=== PATIENT | male | born 2005 | race Hispanic/Latino ===

== ENCOUNTER 2025-03-23 14:48 | Emergency (ER) | payer SELFPAY ==
--- OUTSIDE RECORDS SUMMARY | 2025-03-23 14:53 | XMS REPORT | Continuity of Care Document ---
Author Name Unknown Address [address] 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 Name Role Phone Pcp, No Primary Care Physician [phone] KANE JAIN Attending Clinician UnavailKANE Valentin Attending Clinician UnavailARVIN Villanueva Attending Clinician Unavailable ARVIN HERNÁNDEZ Attending Clinician Unavailable VI DAMON Attending Clinician Unavail able VI DAMON Attending Clinician Unavail able MARCIA CUEVAS Attending Clinician Unav ailMARCIA Treviño Attending Clinician UnaMarcia Guzman MD Attending Clinician + MAGO DIANE Attending Clinician UnavailCruz West NP Attending Clinician [phone] [id number] Attending Clinician Unavailable KANE JAIN Admitting Clinician VI Cantor Admitting Clinician Unavail able MARCIA CUEVAS Admitting Clinician MAGO Jarquin Admitting Clinician Albino bermudez Payers Payer Name Policy Type Policy Number Effective Date Expirati on Date Source MEDICAID ALIEN PENDING PENDING 2024 00:00:00 Problems Condition Name Condition Details Condition Category Status Onset Date Resolution Date Last Treatment Date Treating Clinician Comments Source Chest pain, unspecifie d type Chest pain, unspecifie d type Disease Active 01-30 00:00: 00 [facility] Allergies, Adverse Reactions, Alerts Allergy Name Allergy Type Status Severity Reaction(s) Onset Date Inactive Date Treating Clinician Comments Source no allergie s (Not Checked) Propensi ty to adverse reaction to drug Active 03-10 00:00: 00 Tres Degroot NO KNOWN ALLERGIE S Drug Class Active [facility] Social History Social Habit Start Date Stop Date Quantity Comments Source History of tobacco use [facility]igarette [facility] Tobacco use and exposure 2023-11-14 00:00:00 2023-11-14 00:00:00 Smokeless tobacco non-user [facility] Sex assigned at 2005 00:00:00 2005 00:00:00 [facility] Smoking Status Start Date Stop Date Source Tobacco smoking consumption unknown [facility] Smokes tobacco daily 2023-11-14 00:00:00 [facility] Medications Ordered Medication Name Filled Medication Name Start Date Stop Date Current Medication? Ordering Clinician Indication Dosage Frequency Signature (SIG) Comments Components Source naproxen 500 mg tablet 03-10 00:00: 00 Yes 1mg Tres Degroot omeprazole 40 mg capsule,del ayed release 02-04 00:00: 00 Yes 1mg rTes Degroot predniSONE 20 mg tablet 01-30 00:00: 00 02-05 04:59 :00 Yes [id number] 40mg Take 2 tablets by mouth in the morning for 5 days. [facility] ibuprofen 600 mg tablet 01-30 00:00: 00 01-30 00:00 :00 No [id number] 600mg Take 1 tablet by mouth every 8 hours as needed (pain). [facility] escitalopra m 10 mg tablet 01-16 00:00: 00 Yes 1mg Tres [facility] hydroxyzine HCl 25 mg tablet 01-16 00:00: 00 Yes 1mg Tres Deg[facility] aspirin tablet 325 mg 01-31 04:00: 01-31 04:29 :00 No 325mg 325 mg, Oral, ONCE, 1 dose, On Sat01/31/24 at 2300, STAT [facility] Immunizations Ordered Immunization Name Filled Immunization Name Date Status Comments Source Tenivac (Td) Prefilled Syringe Tenivac (Td) Prefilled Syringe 2023-11-14 00:00:00 Completed [facility] Vital Signs Vital Name Observation Time Observation Value Comments S ource Systolic blood pressure 2025-01-30 21:31:12 119 mm[Hg] [facility] Diastolic blood pressure 2025-01-30 21:31:12 61 mm[Hg] [facility] Heart rate 2025-01-30 21:31:12 58 /min [facility] Body temperature 2025-01-30 21:31:12 36.78 [facility] Respiratory rate 2025-01-30 21:31:12 16 /min [facility] Oxygen saturation in Arterial blood by Pulse oximetry 2025-01-30 21:31:12 99 /min [facility] BMI 2025-01-30 18:48:00 21.14 kg/m2 [facility] Body height 2025-01-30 18:48:00 170.2 cm [facility] Body weight 2025-01-30 18:48:00 61.236 kg [facility] Systolic blood pressure 2025-01-16 00:04:00 112 mm[Hg] [facility] Diastolic blood pressure 2025-01-16 00:04:00 74 mm[Hg] [facility] Heart rate 2025-01-16 00:04:00 69 /min [facility] Body temperature 2025-01-16 00:04:00 36.33 [facility] Respiratory rate 2025-01-16 00:04:00 18 /min [facility] Oxygen saturation in Arterial blood by Pulse oximetry 2025-01-16 00:04:00 100 /min [facility] Body height 2025-01-15 22:58:00 167.6 cm [facility] Body weight 2025-01-15 22:58:00 62.143 kg [facility] BMI 2025-01-15 22:58:00 22.11 kg/m2 [facility] Systolic blood pressure 2024-12-29 19:55:00 117 mm[Hg] [facility] Diastolic blood pressure 2024-12-29 19:55:00 81 mm[Hg] [facility] Heart rate 2024-12-29 19:55:00 69 /min [facility] Body temperature 2024-12-29 19:55:00 36.89 [facility] Respiratory rate 2024-12-29 19:55:00 16 /min [facility] Oxygen saturation in Arterial blood by Pulse oximetry 2024-12-29 19:55:00 100 /min [facility] Body height 2024-12-29 16:17:00 167.6 cm [facility] Body weight 2024-12-29 16:17:00 61.236 kg [facility] BMI 2024-12-29 16:17:00 21.79 kg/m2 [facility] Systolic blood pressure 2024-07-25 00:00:00 124 mm[Hg] [facility] Diastolic blood pressure 2024-07-25 00:00:00 70 mm[Hg] [facility] Heart rate 2024-07-25 00:00:00 90 /min [facility] Respiratory rate 2024-07-25 00:00:00 20 /min [facility] Oxygen saturation in Arterial blood by Pulse oximetry 2024-07-25 00:00:00 100 /min [facility] Body temperature 2024-07-24 21:44:00 37.11 [facility] Body height 2024-07-24 21:44:00 167.6 cm [facility] Body weight 2024-07-24 21:44:00 61.236 kg [facility] BMI 2024-07-24 21:44:00 21.79 kg/m2 [facility] Systolic blood pressure 2024-02-01 05:11:00 120 mm[Hg] [facility] Diastolic blood pressure 2024-02-01 05:11:00 74 mm[Hg] [place] [facility] Heart rate 2024-02-01 05:11:00 74 /min [facility] Body temperature 2024-02-01 05:11:00 36.67 [facility] Respiratory rate 2024-02-01 05:11:00 18 /min [facility] Oxygen saturation in Arterial blood by Pulse oximetry 2024-02-01 05:11:00 98 /min [place] [facility] Body height 2024-02-01 03:18:00 170.2 cm [facility] Body weight 2024-02-01 03:18:00 59.24 kg [facility] BMI 2024-02-01 03:18:00 20.45 kg/m2 [facility] BP Systolic 2025-03-10 16:29:00 122 mm[Hg] Step hen [facility] [place] BP Diastolic 2025-03-10 16:29:00 77 mm[Hg] Alex phen [facility] [place] Weight Measured 2025-03-10 16:29:00 136.00 pounds Tres F Zane Height Measured 2025-03-10 16:29:00 66.20 inches Tres F Zane Body Temperature 2025-03-10 16:29:00 98.20 degrees Tres F Zane Heart Rate 2025-03-10 16:29:00 74.00 /min Mallika en F Zane Respiratory Rate 2025-03-10 16:29:00 18.00 /min Tres F Zane BP Systolic 2025-02-04 14:02:00 135 mm[Hg] Step hen F [place] BP Diastolic 2025-02-04 14:02:00 82 mm[Hg] Alex phen F [facility]ane Weight Measured 2025-02-04 14:02:00 133.40 pounds Tres F Zane Height Measured 2025-02-04 14:02:00 66.20 inches Tres F Zane Body Temperature 2025-02-04 14:02:00 98.20 degrees Tres F Zane Heart Rate 2025-02-04 14:02:00 67.00 /min Mallika en F Zane Respiratory Rate 2025-02-04 14:02:00 18.00 /min Tres F Zane Respiratory Rate 2024-12-22 14:32:00 17.00 /min Tres Neil Dgeroot BP Systolic 2024-12-22 14:32:00 137 mm[Hg] Step hen F [place] BP Diastolic 2024-12-22 14:32:00 75 mm[Hg] Alex phen F [facility]ane Weight Measured 2024-12-22 14:32:00 137.60 pounds Tresbekah Degroto Height Measured 2024-12-22 14:32:00 66.20 inches Tres F Zane Body Temperature 2024-12-22 14:32:00 99.10 degrees Tres Deg[place] Heart Rate 2024-12-22 14:32:00 67.00 /min Mallika en F Zane BP Systolic 2015-03-22 16:39:00 116 mm[Hg] Step hen F Zane BP Diastolic 2015-03-22 16:39:00 78 mm[Hg] Alex phen Neil Degroot Weight Measured 2015-03-22 16:39:00 62.20 pounds Tres Degroot Height Measured 2015-03-22 16:39:00 51.20 inches Tres [facility] Body Temperature 2015-03-22 16:39:00 98.70 degrees Tres [facility] Heart Rate 2015-03-22 16:39:00 99.00 /min Mallika en F Zane Respiratory Rate 2015-03-22 16:39:00 16.00 /min Tres Neil Degroot Procedures Procedure Date / Time Performed Performing Clinician Source LIPASE 2025-01-30 19:26:00 Kane Jain [facility] TROPONIN I 2025-01-30 19:26:00 Kane Jain [facility] COMP. METABOLIC PANEL ([id number]) 2025-01-30 19:26:00 Kane Jain [facility] CBC WITH DIFF 2025-01-30 19:26:00 [facility]OUT[facility] & RHYTHM STRIP 2025-01-30 18:52:02 Kane Jain [facility] XR CHEST 1 VW 2024-12-29 17:42:56 Vi Damon [facility] TROPONIN I 2024-12-29 17:38:00 Vi Damon [facility] COMP. METABOLIC PANEL ([id number]) 2024-12-29 17:38:00 LluviaVi hills [facility] CBC WITH DIFF 2024-12-29 17:38:00 JacksonVi mir [facility] XR CHEST 1 VW 2024-07-24 22:56:17 Marcia Cuevas [facility] TROPONIN I 2024-07-24 22:53:00 Marcia Cuevas [facility] COMP. METABOLIC PANEL ([id number]) 2024-07-24 22:53:00 Marcia Cuevas [facility] CBC WITH DIFF 2024-07-24 22:53:00 Marcia Cuevas [facility] XR CHEST 2 VW 2024-02-01 03:44:14 Mago Diane [facility] TROPONIN I 2024-02-01 03:38:00 Mago Diane [facility] COMP. METABOLIC PANEL ([id number]) 2024-02-01 03:38:00 Mago Diane [facility] CBC WITH DIFF 2024-02-01 03:38:00 Mago Diane [facility] N-TERMINAL PRO-BNP 2024-02-01 03:38:00 Nicole Diane [facility] SANOFI TENIVAC (TD) 0.5ML PFS IM; WITHOUT PRESERVATIVE 2023-11-14 12:49:18 Cruz Vidal [facility] Encounters Start Date/Time End Date/Time Encounter Type Admission Type Attending [facility] Care Facility Care Department Encounter ID Source 2025-03-10 16:23:39 2025-03-10 16:23:39 Outpatient [facility] [id number] Tres Neil Zane 2025-03-10 00:00:00 2025-03-10 00:00:00 Outpatient Visit [facility] [id number] T[facility] 2025-02-13 09:18:17 2025-02-13 09:18:17 Outpatient [facility] [id number] Tres Deg[place] 2025-02-04 13:53:16 2025-02-04 13:53:16 Outpatient [facility] [id number] Tres Deg[place] 2025-02-04 00:00:00 2025-02-04 00:00:00 Outpatient Visit [facility] [id number] [facility] [place] 2025-01-30 13:49:00 2025-01-30 17:42:00 Emergency X KANE JAIN [facility]ERT [facility] ERT [id number] [facility] 2025-01-16 09:25:43 2025-01-16 09:25:43 Outpatient [facility] 19 Tres [place] 2025-01-15 17:59:00 2025-01-15 19:09:00 Emergency X ARVIN HERNÁNDEZ JULIO [facility] ERT [id number] [facility] 2025-01-07 15:52:36 2025-01-07 15:52:36 Outpatient [facility] 10 Tres Deg[place] 2024-12-29 11:20:00 2024-12-29 15:01:00 Emergency X VI DAMON, VI [facility] ERT [id number] [facility] 2024-12-22 14:18:43 2024-12-22 14:18:43 Outpatient [facility] 24 Tres Deg[place] 2024-12-22 00:00:00 2024-12-22 00:00:00 Outpatient Visit SFA [id number] [facility]res [facility] 2024-07-24 15:49:00 2024-07-24 18:34:00 Emergency X AUFDERRANDOLPH BARNETTIN AUFDERMARCIA BARNETT [facility] ERT [id number] [facility] 2024-07-24 15:49:00 2024-07-24 18:34:00 Emergency Marcia Cuevas [facility] [id number] [facility] 2024-01-31 22:23:00 2024-02-01 00:19:00 Emergency X MAGO DIANE [facility] ERT [id number] [facility] 2024-01-31 22:23:00 2024-02-01 00:19:00 Emergency Mago Diane [facility] [id number] [facility] 2023-11-14 12:20:00 2023-11-14 12:54:38 Office Visit Cruz Vidal [id number], [place] [facility] [place] [id number] [facility] Health Results Test Description Test Time Test Comments Results Result Co mments Source [facility]. METABOLIC PANEL ([id number])2025-01-30 20:25:21* Test Item Value Reference Range Interpretation Comme nts NA (test code = 0578742420) 138 mmol/L 135-145 K (test code = 5588786281) 3.7 mmol/L 3.5-5.0 CL (test code = 2443812421) 103 mmol/L 98-108 CO2 TOTAL (test code = 8353350530) 26 mmol/L 23-31 AGAP (test code = 4482945271) 9 2-16 BUN (test code = 3027727340) 12 mg/dL 7-23 GLUCOSE (test code = 0145453988) 93 mg/dL 70-110 CREATININE (test code = 2160-0) 1.01 mg/dL 0.60-1.25 TOTAL BILI (test code = 6061285393) 0.8 mg/dL 0.1-1.1 CALCIUM (test code = 8501503543) 9.4 mg/dL 8.6-10.6 T PROTEIN (test code = 6419665844) 7.9 g/dL 6.3-8.2 ALBUMIN (test code = 8611162538) 4.6 g/dL 3.5-5.0 ALK PHOS (test code = 3445801603) 81 U/L 34-122 ALTv (test code = 1742-6) 17 U/L 5-50 AST(SGOT) (test code = 4171344241) 35 U/L 13-40 eGFR (test code = 48530-0) 109.2 mL/min/1.73m2 CKD-EPI eGFR (20 21). Assuming creatinine has been stable day-to-day for at least three months, the eGFR indicates Category G1 (>= 90 mL/min/1.73 m2) [facility]:25[facility]21* Test Item Value Reference Range Interpretation Comme nts LIPASE (test code = 6716580565) 56 U/L 0-220 Lab Interpretation (test cod e = 39329-4) Normal [facility] [id number] 20:09:18* Test Item Value Reference Range Interpretation Comme nts WBC (test code = 6690-2) 5.69 4.20-10.70 RBC (test code = 789-8) 4.8 4.26-5.52 HGB (test code = 718-7) 14.3 g/dL 12.2-16.4 HCT (test code = 4544-3) 41.2 % 38.4-49.3 MCV (test code = 787-2) 85.8 fL 81.7-95.6 MCH (test code = 785-6) 29.8 pg 26.1-32.7 MCHC (test code = 786-4) 34.7 g/dL 31.2-35.0 RDW-SD (test code = 65354-0) 36.1 fL 38.5-51.6 L RDW-CV (test code = 788-0) 11.7 % 12.1-15.4 L PLT (test code = 777-3) 207 150-328 MPV (test code = 48395-5) 9.8 fL 9.8-13.0 NRBC/100 WBC (test code = 7351257221) 0 0.0-10.0 NRBC x10^3 (test code = 0252782020) See_Comment [Automated messa ge] The system which generated this result transmitted reference range: 10*3/?L. The reference range was not used to interpret this result as normal/abnormal. GRAN MAT (NEUT) % (test code = 770-8) 63.2 % IMM GRAN % (test code = 7881218734) 0.2 % LYMPH % (test code = 736-9) 28.1 % MONO % (test code = 5905-5) 6.9 % EOS % (test code = 713-8) 1.4 % BASO % (test code = 706-2) 0.2 % GRAN MAT x10^3(ANC) (test code = 3997572128) 3.6 10*3/uL 1.99-6.95 IMM GRAN x10^3 (test code = 1224374406) 0.00-0.06 LYMPH x10^3 (test code = 731-0) 1.6 10*3/uL 1.09-3.23 MONO x10^3 (test code = 742-7) 0.39 10*3/uL 0.36-1.02 EOS x10^3 (test code = 711-2) 0.08 10*3/uL 0.06-0.53 BASO x10^3 (test code = 704-7) 0.01-0.09 Lab Interpretation (test code = 87276-4) [facility] [id number] 18:27:17EXAM: XR CHEST 1 VW 12/29/2024 12:35 PM HISTORY: 19 years old Male with chest pain TECHNIQUE: Single AP view of the chest. COMPARISON: Chest x-ray 07/24/2024 FINDINGS: Lines/tubes and devices: None. Lungs and pleura: The lungs are clear. No focal consolidation,pneumothorax, or pleural effusion is seen. Cardiomediastinal: The cardiomediastinal silhouette is normal accountingfor technique. Musculoskeletal: No acute osseous abnormality.[facility] [id number] 00:00:00* Test Item Value Reference Range Interpretation Comme [facility] GLUCOSE (test code = 2345-7) 92 mg/dL UREA NITROGEN (BUN) (test code = 3094-0) 15 mg/dL CREATININE (test code = 2160-0) 0.93 mg/dL EGFR (test code = 36550-3) 121 mL/min/1.73m2 BUN/CREATININE RATIO (test code = 3097-3) SEE NOTE: (calc) SODIUM (test code = 2951-2) 139 mmol/L POTASSIUM (test code = 2823-3) 4.3 mmol/L CHLORIDE (test code = 2075-0) 101 mmol/L CARBON DIOXIDE (test code = 2027-9) 28 mmol/L CALCIUM (test code = 31631-1) 9.3 mg/dL PROTEIN, TOTAL (test code = 2885-2) 7.4 g/dL ALBUMIN (test code = 1751-7) 4.5 g/dL GLOBULIN (test code = 90082-4) 2.9 g/dL(calc) ALBUMIN/GLOBULIN RATIO (test code = 1759-0) 1.6 (calc) BILIRUBIN, TOTAL (test code = 1975-2) 0.4 mg/dL ALKALINE PHOSPHATASE (test code = 6768-6) 96 U/L AST (test code = 1920-8) 20 U/L ALT (test code = 1742-6) 26 U/L [facility] [place] (INCLUDES DIFF/PLT)2024-12-23 00:00:00* Test Item Value Reference Range Interpretation Comme [facility] WHITE BLOOD CELL COUNT (test code = 6690-2) 5.3 Thousand/uL RED BLOOD CELL COUNT (test code = 789-8) 5.05 Million/uL HEMOGLOBIN (test code = 718-7) 15.0 g/dL HEMATOCRIT (test code = 4544-3) 46.6 % MCV (test code = 787-2) 92.3 fL MCH (test code = 785-6) 29.7 pg MCHC (test code = 786-4) 32.2 g/dL RDW (test code = 788-0) 12.3 % PLATELET COUNT (test code = 777-3) 225 Thousand/uL MPV (test code = 776-5) 10.4 fL ABSOLUTE NEUTROPHILS (test code = 751-8) 3275 cells/uL ABSOLUTE BAND NEUTROPHILS (test code = 32880-6) DNR cells/uL ABSOLUTE METAMYELOCYTES (henrry t code = 14920-2) DNR cells/uL ABSOLUTE MYELOCYTES (test code = 34389-2) DNR cells/uL ABSOLUTE PROMYELOCYTES (test code = 06588-1) DNR cells/uL ABSOLUTE LYMPHOCYTES (test code = 731-0) 1526 cells/uL ABSOLUTE MONOCYTES (test cod e = 742-7) 376 cells/uL ABSOLUTE EOSINOPHILS (test code = 711-2) 90 cells/uL ABSOLUTE BASOPHILS (test cod e = 704-7) 32 cells/uL ABSOLUTE BLASTS (test code = 93008-5) DNR cells/uL ABSOLUTE NUCLEATED RBC (test code = 48316-3) DNR cells/uL NEUTROPHILS (test code = 770-8) 61.8 % BAND NEUTROPHILS (test code = 764-1) DNR % METAMYELOCYTES (test code = 740-1) DNR % MYELOCYTES (test code = 749-2) DNR % PROMYELOCYTES (test code = 783-1) DNR % LYMPHOCYTES (test code = 736-9) 28.8 % REACTIVE LYMPHOCYTES (test code = 28182-4) DNR % MONOCYTES (test code = 5905-5) 7.1 % EOSINOPHILS (test code = 713-8) 1.7 % BASOPHILS (test code = 706-2) 0.6 % BLASTS (test code = 709-6) DNR % NUCLEATED RBC (test code = 23212-7) DNR /100WBC COMMENT(S) (test code = 8251-1) DNR Tres [id number] 00:00:00* Test Item Value Reference Range Interpretation Comme nts MAGNESIUM (test code = 26135-7) 1.9 mg/dL Tres Trejo [id number] 00:00:00* Test Item Value Reference Range Interpretation Comme nts TSH (test code = 3016-3) 1.22 mIU/L Tres DegrootCOMPREHENSIVE METABOLIC [id number] 00:00:00* Test Item Value Reference Range Interpretation Comme nts GLUCOSE (test code = 2345-7) 92 mg/dL UREA NITROGEN (BUN) (test code = 3094-0) 15 mg/dL CREATININE (test code = 2160-0) 0.93 mg/dL EGFR (test code = 94747-0) 121 mL/min/1.73m2 BUN/CREATININE RATIO (test code = 3097-3) SEE NOTE: (calc) SODIUM (test code = 2951-2) 139 mmol/L POTASSIUM (test code = 2823-3) 4.3 mmol/L CHLORIDE (test code = 2075-0) 101 mmol/L CARBON DIOXIDE (test code = 2027-9) 28 mmol/L CALCIUM (test code = 01261-7) 9.3 mg/dL PROTEIN, TOTAL (test code = 2885-2) 7.4 g/dL ALBUMIN (test code = 1751-7) 4.5 g/dL GLOBULIN (test code = 61437-8) 2.9 g/dL(calc) ALBUMIN/GLOBULIN RATIO (test code = 1759-0) 1.6 (calc) BILIRUBIN, TOTAL (test code = 1975-2) 0.4 mg/dL ALKALINE PHOSPHATASE (test code = 6768-6) 96 U/L AST (test code = 1920-8) 20 U/L ALT (test code = 1742-6) 26 U/L [facility]PLT[facility]2024-12-23 00:00:00* Test Item Value Reference Range Interpretation Comme nts WHITE BLOOD CELL COUNT (test code = 6690-2) 5.3 Thousand/uL RED BLOOD CELL COUNT (test code = 789-8) 5.05 Million/uL HEMOGLOBIN (test code = 718-7) 15.0 g/dL HEMATOCRIT (test code = 4544-3) 46.6 % MCV (test code = 787-2) 92.3 fL MCH (test code = 785-6) 29.7 pg MCHC (test code = 786-4) 32.2 g/dL RDW (test code = 788-0) 12.3 % PLATELET COUNT (test code = 777-3) 225 Thousand/uL MPV (test code = 776-5) 10.4 fL ABSOLUTE NEUTROPHILS (test code = 751-8) 3275 cells/uL ABSOLUTE BAND NEUTROPHILS (test code = 97962-9) DNR cells/uL ABSOLUTE METAMYELOCYTES (henrry t code = 98965-4) DNR cells/uL ABSOLUTE MYELOCYTES (test code = 04050-7) DNR cells/uL ABSOLUTE PROMYELOCYTES (test code = 02283-2) DNR cells/uL ABSOLUTE LYMPHOCYTES (test code = 731-0) 1526 cells/uL ABSOLUTE MONOCYTES (test cod e = 742-7) 376 cells/uL ABSOLUTE EOSINOPHILS (test code = 711-2) 90 cells/uL ABSOLUTE BASOPHILS (test cod e = 704-7) 32 cells/uL ABSOLUTE BLASTS (test code = 02063-9) DNR cells/uL ABSOLUTE NUCLEATED RBC (test code = 25584-1) DNR cells/uL NEUTROPHILS (test code = 770-8) 61.8 % BAND NEUTROPHILS (test code = 764-1) DNR % METAMYELOCYTES (test code = 740-1) DNR % MYELOCYTES (test code = 749-2) DNR % PROMYELOCYTES (test code = 783-1) DNR % LYMPHOCYTES (test code = 736-9) 28.8 % REACTIVE LYMPHOCYTES (test code = 29520-6) DNR % MONOCYTES (test code = 5905-5) 7.1 % EOSINOPHILS (test code = 713-8) 1.7 % BASOPHILS (test code = 706-2) 0.6 % BLASTS (test code = 709-6) DNR % NUCLEATED RBC (test code = 47671-6) DNR /100WBC COMMENT(S) (test code = 8251-1) DNR Tres [id number] 00:00:00* Test Item Value Reference Range Interpretation Comme nts MAGNESIUM (test code = 82249-5) 1.9 mg/dL Tres [id number] 00:00:00* Test Item Value Reference Range Interpretation Comme nts TSH (test code = 3016-3) 1.22 mIU/L Tres DegrootTroponin [id number] 23:33:39* Test Item Value Reference Range Interpretation Comme nts TROPONIN I (test code = 0184555248) 0.009 ng/mL <=0.034 LUCY (test code = LUCY) Reference (Normal) Range (defined by the 99th percentile reference limit): <= 0.034 ng/mL Note: Cardiac troponin begins to rise 3-4 hours after the onset of ischemia. Repeat in 4-6 hours if the sample was drawn within 3-4 hours of the onset of the symptom and found normal. Diagnosis of myocardial injury is made with acute changes in cTn concentrations with at least one serial sample above the 99th percentile upper reference limit (URL), taken together with the patient's clinical presentation. Biotin has been reported to cause a negative bias, interpret results relative to patient's use of biotin. Lab Interpretation (test code = 13304-6) Normal [facility]. Metabolic Panel ([id number] 23:22:41* Test Item Value Reference Range Interpretation Comme nts NA (test code = 7446954362) 139 mmol/L 135-145 K (test code = 9847600818) 4.2 mmol/L 3.5-5.0 CL (test code = 7916832507) 102 mmol/L 98-108 CO2 TOTAL (test code = 3066823890) 30 mmol/L 23-31 AGAP (test code = 0249894835) 7 2-16 BUN (test code = 9913233160) 14 mg/dL 7-23 GLUCOSE (test code = 4049156992) 104 mg/dL 70-110 CREATININE (test code = 2160-0) 0.81 mg/dL 0.60-1.25 TOTAL BILI (test code = 7410760905) 0.5 mg/dL 0.1-1.1 CALCIUM (test code = 2483040703) 9.6 mg/dL 8.6-10.6 T PROTEIN (test code = 1923543388) 8.2 g/dL 6.3-8.2 ALBUMIN (test code = 7775784436) 4.8 g/dL 3.5-5.0 ALK PHOS (test code = 2088612838) 88 U/L 34-122 ALTv (test code = 1742-6) 32 U/L 5-50 AST(SGOT) (test code = 2591068382) 29 U/L 13-40 eGFR (test code = 30927-9) 130.3 mL/min/1.73m2 CKD-EPI eGFR (20 21). Assuming creatinine has been stable day-to-day for at least three months, the eGFR indicates Category G1 (>= 90 mL/min/1.73 m2) [facility] [id number] 23:21:36EXAM: XR CHEST 1 07/24/2024 4:50 PM HISTORY: 18 years-old Male with chest pain . TECHNIQUE: Portable AP view of the chest. COMPARISON: 01/31/2024 FINDINGS: Lines and tubes: None. Cardiomediastinal: The cardiomediastinal silhouette is unremarkable. Lungs and pleura: The lungs are clear. No focal consolidation,pneumothorax, or pleural effusion is seen. Included osseous structures show no acute abnormality. [facility] with [id number] 23:12:19* Test Item Value Reference Range Interpretation Comme nts WBC (test code = 6690-2) 5.80 4.20-10.70 RBC (test code = 789-8) 5.04 4.26-5.52 HGB (test code = 718-7) 14.9 g/dL 12.2-16.4 HCT (test code = 4544-3) 42.6 % 38.4-49.3 MCV (test code = 787-2) 84.5 fL 81.7-95.6 MCH (test code = 785-6) 29.6 pg 26.1-32.7 MCHC (test code = 786-4) 35.0 g/dL 31.2-35.0 RDW-SD (test code = 51163-3) 35.3 fL 38.5-51.6 L RDW-CV (test code = 788-0) 11.6 % 12.1-15.4 L PLT (test code = 777-3) 230 150-328 MPV (test code = 53284-4) 9.7 fL 9.8-13.0 L NRBC/100 WBC (test code = 7664977286) 0.0 0.0-10.0 NRBC x10^3 (test code = 0344559848) See_Comment [Automated Protein Bara ge] The system which generated this result transmitted reference range: 10*3/?L. The reference range was not used to interpret this result as normal/abnormal. GRAN MAT (NEUT) % (test code = 770-8) 62.9 % IMM GRAN % (test code = 5607150852) 0.20 % LYMPH % (test code = 736-9) 28.8 % MONO % (test code = 5905-5) 6.7 % EOS % (test code = 713-8) 1.2 % BASO % (test code = 706-2) 0.2 % GRAN MAT x10^3(ANC) (test code = 3653049051) 3.65 10*3/uL 1.99-6.95 IMM GRAN x10^3 (test code = 6914510202) 0.00-0.06 LYMPH x10^3 (test code = 731-0) 1.67 10*3/uL 1.09-3.23 MONO x10^3 (test code = 742-7) 0.39 10*3/uL 0.36-1.02 EOS x10^3 (test code = 711-2) 0.07 10*3/uL 0.06-0.53 BASO x10^3 (test code = 704-7) 0.01-0.09 Lab Interpretation (test code = 12443-7) Abnormal [facility] 2 [id number] 04:52:55Ordering physician: MAGO DIANE Indication: Chest pain Comparison: None Technical quality: Adequate Findings: PA and lateral views of the chest. The cardiopericardialsilhouette is within normallimits. The lungs are clear bilaterally. Thevisualized bony thorax is intact.[facility] Notes Date/Time Note Provider Source Tres Booker [facility]2025-08-07 00:00:00 Tres Booker [facility]2025-08-02 17:41:30 Patient given discharge instructions on chest pain. Given prescriptions X 1 for prednisone. Pt advised to follow up with pcp. Pt left ER ambulatory, no signs of distress. [facility] - [id number] 13:46:55 Patient states "I was out shopping with my girlfriend and I started having pain when I took a deep breath, So I called an ambulance and they recommended I come in and get checked out." Shun Velázquez RNUT - [id number] 13:41:00 Associated Order(s): EKG-12 Lead ROUTINE ONCE Pre-Procedure Diagnose(s): Chest pain, unspecified type Post-Procedure Diagnose(s): Chest pain, unspecified type [facility] Emergency Department Note Patient Name: Víctor Landaverde Date of : 2005 19 year old male Treatment Room: [facility] Primary Care Physician: PATIENT DOES NOT HAVE A PCP Patient Escorted by: Self [9] Mode of Arrival: Personal means [1] EMS 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 treatment: Aspirin HARVESTING SUPERVISOR treatment comments: aspirin at 1230 Travel and Exposure Screening: Symptoms Does patient have any of these symptoms?: (not recorded) Exposure Screening Has patient had contact with someone with a communicable disease in the last month?: (not recorded) Diseases exposed to:: (not recorded) Is Patient ?: (not recorded) Exposure Date: (not recorded) Chief Complaint: Chief Complaint Patient presents with Chest Pain (With respirations) History of Present Illness: History of Present Illness Onset today with sternal chest wall discomfort, brief, sharp, aggravated with deep breaths. Onset while walking. 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 No fever. No cold symptoms. No dyspnea. No nausea, vomiting, diarrhea. No pedal edema. No abdominal pain. No rash. No fall. Recently started escitalopram and hydroxyzine for anxiety disorder. History provided by: Patient Past Medical History/Immunizations: History reviewed. No pertinent past medical history. Allergies: No Known Allergies Past Social History: Substance & Sexual Activity No substance use or sexual activity history on file. Past Surgical History: History reviewed. No pertinent surgical history. Review of Systems: Review of Systems Constitutional: Negative. HENT: Negative. Eyes: Negative. Respiratory: Negative. Cardiovascular: Positive for chest pain. Gastrointestinal: Negative. Genitourinary: Negative. Musculoskeletal: Negative. Skin: Negative. Neurological: Negative. Psychiatric/Behavioral: Negative. Physical Exam: Physical Exam ED Triage Vitals [01/30/25 1348] Weight 61.2 kg (135 lb) Actual or estimated Height 1.702 m (5' 7") BP 118/55 Pulse 59 Resp 16 Temp 37 ?C (98.6 ?F) Temp source Oral SpO2 100 % Measured on Physical Exam Vitals and nursing note reviewed. Constitutional: General: He is not in acute distress. Appearance: Normal appearance. He is not ill-appearing, toxic-appearing or diaphoretic. HENT: Head: Normocephalic and atraumatic. Right Ear: External ear normal. Left Ear: External ear normal. Nose: Nose normal. Mouth/Throat: Mouth: Mucous membranes are moist. Eyes: Extraocular Movements: Extraocular movements intact. Conjunctiva/sclera: Conjunctivae normal. Cardiovascular: Rate and Rhythm: Normal rate and regular rhythm. Pulmonary: Effort: Pulmonary effort is normal. No respiratory distress. Breath sounds: Normal breath sounds. No wheezing, rhonchi or rales. Chest: Chest wall: Tenderness (focal ttp mid sternum without crepitus, edema, deformity) present. Abdominal: General: There is no distension. Palpations: Abdomen is soft. Tenderness: There is no abdominal tenderness. Musculoskeletal: General: Normal range of motion. Cervical back: Normal range of motion. Right lower leg: No edema. Left lower leg: No edema. Skin: General: Skin is warm and dry. Neurological: General: No focal deficit present. Mental Status: He is alert. Psychiatric: Mood and Affect: Mood normal. Behavior: Behavior normal. Thought Content: Thought content normal. Judgment: Judgment normal. Radiology: XR Chest 2 vw Preliminary Result EXAM: XR CHEST 2 VW 01/30/2025 2:23 PM HISTORY: 19 years-old Male with sternal chest pain TECHNIQUE: Frontal and lateral views of the chest. COMPARISON: Chest x-ray 12/29/2024 FINDINGS: Lungs: The lungs are clear. No focal opacities. No pleural abnormalities are detected. Heart/Mediastinum: The cardiomediastinal silhouette is normal in size. Musculoskeletal: No acute osseous abnormality. IMPRESSION No acute cardiopulmonary abnormality. Preliminary Report Dictated by Resident: Erlinda Snyder Lab Results: Lab Results CBC WITH DIFF - Abnormal Result Value Ref Range WBC 5.69 4.20 - 10.70 10*3/?L RBC 4.80 4.26 - 5.52 10*6/?L HGB 14.3 12.2 - 16.4 g/dL HCT 41.2 38.4 - 49.3 % MCV 85.8 81.7 - 95.6 fL MCH 29.8 26.1 - 32.7 pg MCHC 34.7 31.2 - 35.0 g/dL RDW-SD 36.1 (*) 38.5 - 51.6 fL RDW-CV 11.7 (*) 12.1 - 15.4 % PLT 207 150 - 328 10*3/?L MPV 9.8 9.8 - 13.0 fL NRBC/100 WBC 0.0 0.0 - 10.0 /100 WBCs NRBC x103<0.01 10*3/?L GRAN MAT (NEUT) % 63.2 % IMM GRAN % 0.20 % LYMPH % 28.1 % MONO % 6.9 % EOS % 1.4 % BASO % 0.2 % GRAN MAT x103(ANC) 3.60 1.99 - 6.95 10*3/uL IMM GRAN x103<0.03 0.00 - 0.06 10*3/uL LYMPH x1031.60 1.09 - 3.23 10*3/uL MONO x1030.39 0.36 - 1.02 10*3/uL EOS x1030.08 0.06 - 0.53 10*3/uL BASO x103<0.03 0.01 - 0.09 10*3/uL LIPASE - Normal LIPASE 56 0 - 220 U/L TROPONIN I - Normal TROPONIN I 0.007 <=0.034 ng/mL COMP. METABOLIC PANEL (26995) NA 138 135 - 145 mmol/L K 3.7 3.5 - 5.0 mmol/L CL 103 98 - 108 mmol/L CO2 TOTAL 26 23 - 31 mmol/L AGAP 9 2 - 16 BUN 12 7 - 23 mg/dL GLUCOSE 93 70 - 110 mg/dL CREATININE 1.01 0.60 - 1.25 mg/dL TOTAL BILI 0.8 0.1 - 1.1 mg/dL CALCIUM 9.4 8.6 - 10.6 mg/dL T PROTEIN 7.9 6.3 - 8.2 g/dL ALBUMIN 4.6 3.5 - 5.0 g/dL ALK PHOS 81 34 - 122 U/L ALTv 17 5 - 50 U/L AST(SGOT) 35 13 - 40 U/L eGFR 109.2 mL/min/1.73m2 EKG: If EKG completed, see Procedure Note. Orders and Treatments: Orders Placed This Encounter Procedures XR Chest 2 vw CBC WITH DIFF COMP. METABOLIC PANEL (75649) LIPASE TROPONIN I Orders Placed This Encounter Medications predniSONE 20 mg tablet DISCONTD: ibuprofen 600 mg tablet First Provider Eval: ED Events Date/Time Event User Comments 01/30/25 1354 Medical Screening Begins KANE JAIN MD -- 01/30/25 1354 First Provider Evaluation KANE JAIN MD -- ED COURSE ED Course as of 01/30/25 1557 Sat Jan 30, 2025 1417 Declines pain medication at time of initial assessment. [RK] ED Course User Index [RK] Kane Jain MD Diagnosis/Impression as of 01/30/25 1557 Chest pain, unspecified type Results Procedures: EKG-12 Lead ROUTINE ONCE Date/Time: 01/30/2025 3:47 PM Performed by: Kane Jain MD Authorized by: Kane Jain MD ECG interpreted by ED Physician in the absence of a advisory software engineer: yes Previous ECG: Previous ECG: Compared to current Comparison ECG info: Compared to EKG of 01/15/2025 no significant changes Interpretation: Interpretation: non-specific Rate: ECG rate: 60 ECG rate assessment: normal Rhythm: Rhythm: sinus rhythm Ectopy: Ectopy: none QRS: QRS axis: Normal (+72) ST segments: ST segments: Non-specific T waves: T waves: non-specific Comments: Qtc 380 MDM: Assessment & Plan Medical Decision Making Primary impression: chest wall pain without acute critical exam findings Differential Diagnoses, including but not limited to: electrolyte / glucose abnl, anemia, IZABELA, arrhythmia, acute coronary event, muscle strain, fracture, pneumothorax Problems Addressed: Chest pain, unspecified type: acute illness or injury Amount and/or Complexity of Data Reviewed Independent Historian: Details: self Labs: ordered. Decision-making details documented in ED Course. Radiology: ordered. Decision-making details documented in ED Course. ECG/medicine tests: ordered and independent interpretation performed. Decision-making details documented in ED Course. Discussion of management or test interpretation with external provider(s): N/a Risk OTC drugs. Prescription drug management. Risk Details: Unremarkable OBS in ED. Findings and plan discussed with patient. Focal chest wall pain, onset after recent lifting of heavy, odd-shaped objects. HEART 0. Musculoskeletal etiology remains in differential. Will treat with anti-inflammatories. No findings that require acute hospitalization today. Flowsheet Documentation: Scoring Tools: No data recorded HEART Score: 0 Disposition/Condition: ED Disposition ED Disposition Discharge Condition Stable Comment -- Discharge Medications: Patient's Medications START taking these medications PREDNISONE 20 MG TABLET Take 2 tablets by mouth in the morning for 5 days. CONTINUE taking these medications which have NOT CHANGED No medications on file START taking Modified Medications as Prescribed No medications on file STOP taking these medications No medications on file Follow-up: A PCP Electronically signed by: Kane Jain MD 01/30/25 1557 [facility]53 Patient given discharge instructions, and verbalized no further concerns or questions. Skin p/w/d, rr equal and non labored. A&Ox4. Ambulated independently with a steady gait in stable condition. Lucia Madrigal [facility] CenterRkkoaz5386-14-52 17:54:57 [facility] states: "Pt was at work and c/o anxiety and chest pain. He reports some psych appts coming up. Denies SI. His bgl was 140. He reports he's under a lot of stress" Denies SI. Denies HI. 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 He reports some psych appts coming up. Denies SI. His bgl was 140. He reports he's under a lot of stress" Denies SI. Denies HI. 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 Chief Complaint Patient presents with • Anxiety • Chest Pain History of present illness HPI History of Present Illness This is a male with a history of anxiety presenting with chest pain and weakness. The patient experienced a sudden onset of weakness while at work around 11 AM, accompanied by difficulty breathing and mild chest discomfort. Despite normal vital signs as reported by the ambulance team, he was advised to seek medical attention. A few hours later, while driving himself to the hospital due to persistent chest discomfort, he experienced numbness in his entire left arm, prompting him to call an ambulance. He took aspirin this morning for his chest pain. He is not currently on any other medications. He also reports anxiety, which has been occurring once or twice daily for the past month. He is unable to identify specific triggers for his anxiety, but notes that it often begins with chest pain, followed by overthinking his symptoms. His anxiety symptoms started after moving from [place] to live with his mother about a year ago, and have been intermittent since then. He has been trying to manage his anxiety by focusing on his breathing and stimulating his senses in different ways, but finds it challenging due to feelings of weakness and a desire to sit down when standing. He had asthma in his childhood, but it is currently dormant. 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 BP 129/61 | Pulse 73 | Temp 37.3 ?C (99.1 ?F) (Oral) | Resp 16 | Ht 1.676 m (5' 6") | Wt 62.1 kg (137 lb) | SpO2 100% | BMI 22.11 kg/m? Past Medical and Social History History reviewed. No pertinent past medical history. Tetanus received in last 5 years: Yes Past Surgical History History reviewed. No pertinent surgical history. Medications Medications - No data to display Allergies No Known Allergies Review of Systems Review of Systems Constitutional: Negative. HENT: Negative. Eyes: Negative. Respiratory: Negative. Breasts: Negative. Cardiovascular: Negative. Gastrointestinal: Negative. Genitourinary: Negative. Musculoskeletal: Negative. Skin: Negative. Neurological: Negative. Psychiatric/Behavioral: Negative. Endocrine: Endocrine negative Physical Exam BP 129/61 | Pulse 73 | Temp 37.3 ?C (99.1 ?F) (Oral) | Resp 16 | Ht 1.676 m (5' 6") | Wt 62.1 kg (137 lb) | SpO2 100% | BMI 22.11 kg/m? Physical Exam Vitals and nursing note reviewed. Constitutional: General: He is not in acute distress. Appearance: He is well-developed. He is not ill-appearing. HENT: Head: Normocephalic and atraumatic. Right Ear: Ear canal and external ear normal. Left Ear: Ear canal and external ear normal. Nose: Nose normal. No congestion or rhinorrhea. Mouth/Throat: Mouth: Mucous membranes are moist. Pharynx: Oropharynx is clear. No oropharyngeal exudate or posterior oropharyngeal erythema. Eyes: General: Right eye: No discharge. Left eye: No discharge. Conjunctiva/sclera: Conjunctivae normal. Pupils: Pupils are equal, round, and reactive to light. Cardiovascular: Rate and Rhythm: Normal rate and regular rhythm. Pulses: Normal pulses. Heart sounds: Normal heart sounds. No murmur heard. No friction rub. Pulmonary: Effort: Pulmonary effort is normal. No respiratory distress. Breath sounds: Normal breath sounds. No stridor. No wheezing or rhonchi. Abdominal: General: Bowel sounds are normal. There is no distension. Palpations: Abdomen is soft. There is no mass. Tenderness: There is no abdominal tenderness. Hernia: No hernia is present. Musculoskeletal: General: No swelling, tenderness, deformity or signs of injury. Normal range of motion. Cervical back: Normal range of motion and neck supple. No rigidity or tenderness. Skin: General: Skin is warm and dry. Capillary Refill: Capillary refill takes less than 2 seconds. Coloration: Skin is not jaundiced or pale. Findings: No bruising or erythema. Neurological: General: No focal deficit present. Mental Status: He is alert and oriented to person, place, and time. Cranial Nerves: No cranial nerve deficit. Sensory: No sensory deficit. Motor: No weakness. Coordination: Coordination normal. Psychiatric: Mood and Affect: Mood normal. Behavior: Behavior normal. Thought Content: Thought content normal. Judgment: Judgment normal. Labs and Studies Lab Results - No data to display No orders to display Orders and Treatments No orders of the defined types were placed in this encounter. No orders of the defined types were placed in this encounter. Patient's Medications No medications on file Procedures Procedures Evidence Care MDM & Notes Patient was evaluated for an emergency medical condition related to Anxiety and Chest Pain Diagnosis/Impression as of 01/15/25 1856 Anxiety Medical Decision Making Assessment & Plan Initial Assessment: Chest pain, shortness of breath, left arm numbness, likely driven by anxiety. Differential Diagnosis: - Cardiac issues: EKG to rule out. - Anxiety: Episodes once or twice a day, contributing to symptoms. Establish care with PCP. Engage in physical activities. Focus on different tasks. ED Course: - EKG performed, results pending. Final Assessment: EKG performed to rule out cardiac issues. Symptoms likely driven by anxiety. Recommended physical activities and coping strategies. Appears in no distress his vital signs are stable denies any other problems. Reviewed no ST changes. Certainly his cardiac risks is low denies any previous cardiac problems or any medical history. Symptoms likely related to anxiety/panic attack. They report he has been having symptoms for several months since leaving other house in [facility]. I will discharge patient home advised to follow-up with PCP discussed anxiety reactions/panic advised to establish himself with a physician for further outpatient management. The patient understands and agrees with the plan. Clinical Impression: - Anxiety - Chest pain Disposition: - Discharge: Pending EKG results. - Follow-Up: Establish care with PCP. Patient Education: Engage in physical activities. Focus on different tasks to distract the mind. Pulse Oximetry: is not hypoxic. Interpreted. Reassessment:stable Limitations to patient care and compliance: none. Disposition & Follow Up ED Disposition ED Disposition Discharge Condition Stable Comment -- Patient's Medications No medications on file Diagnoses No diagnosis found. Disposition and Condition ED Disposition ED Disposition Discharge Condition Stable Comment -- Patient's Medications No medications on file [employer] Dict[employer] Software is used frequently and may produce errors. Promptly contact for obvious discrepancies. Arvin Hernández MD, FACEP, FAAEM [employer] of Emergency and Internal Medicine [facility] #[id number] Arvin Hernández MD 01/15/25 1396 [facility] HospitalBditiw9235-50-32 14:59:51 Pt given printed and verbal discharge instructions regarding chest pain, panic attacks, and encouraged hydration. Pt verbalized understanding of instructions, pt awake alert oriented, resp reg unlabored, skin w/d, color appropriate for race, moves all ext well,pt encouraged to follow up with pcp and psychiatrist. Advised to seek medical attention for new/prolonged/worsening of symptoms. No adverse reaction to meds given in ER noted upon discharge PIV d'cd, dressing to site, catheter in tact. Awake, alert oriented, resp reg unlabored, skin w/d, pt leaving ambulatory without assist, in no apparent distress, Lynda Rodriguez [facility] CenterWitprq6891-32-36 11:20:09 Chest pain and shortness of breath that started this morning at work. Vitally stable. HX: denies. Kristyn Garcia [facility] CenterZsufbw7654-70-94 00:00:00 [facility]2025-01-24 18:00:00 Patient dc home. Follow up with pcp. Verbalized understanding. VITIES THERAPIST Poli Kessler [facility] CenterOvxvtg1709-90-69 15:43:12 Pt to ED CO one episode of hyperventilation, anxiety, and chest pain approx 1200. Reports residual CP that got better after taking aspirin 324mg. Reports increased stress lately. Denies known history of anxiety. VITIES THERAPIST Darby Graham [facility] [id number] 00:18:30 Awake, alert oriented X4, respiratory even and unlabored,skin w/d color appropriate for race, moves all ext well, pt encouraged to follow up with pcp and or return as needed Pt given printed and verbal discharge instructions regarding chest pain; patient verbalized understanding and signature obtained, patient denies any other concerns. Advised to seek medical attention for new/prolonged/worsening of symptoms, No adverse reaction to meds given in ER noted upon discharge Pt ambulated to the lobby with steady gait Alanna Ann [facility] CenterJbvner3334-51-51 22:13:49 Pt states 2 hours ago he felt scared and ran out of the house and felt pressure on his L chest that radiated to L arm. States he called and ambulance and denied transport for preference for personal transport. Reports chest pain lessened when EMS arrived. Pain is still present at 3/10 pressure. [facility] HospitalVayaua5983-06-66 13:57:08 Not on file [facility] & IiytokSimwhc1796-50-80 13:57:08 Diagnosis Need for vaccination - Primary Need for prophylactic vaccination and inoculation against unspecified single disease [facility] & EggxxwIetdab1150-15-82 13:57:08 [facility] & DxzchlEzkjmt7554-69-04 13:57:08* [facility] & [facility] 2023-11-14 13:57:08 Cognitive Status Response Date of Assessm ent Because of a physical, menta l, or emotional condition, does this person have serious difficulty concentrating, remembering, or making decisions? [facility] & FrtublKzsbpa2507-41-98 13:57:08* Patient Instructions* Cruz Vidal NP - 11/14/2023 12:20 PM CDT Images from the original note were not included. Seek immediate emergency medical attention if you experience severe or worsening abdominal pain, difficulty swallowing, stiff neck, shortness of breath, coughing or vomiting up blood, chest pain, increased fever, unexplained weight loss, or blood in stool. For your safety, please remain in the clinic area for 15 minutes after receiving your vaccination. Notify the provider immediately if you experience difficulty breathing, weakness, hoarseness or wheezing, fast heartbeat, hives, dizziness, paleness, or swelling of the throat. After Your Injection What happens after I receive my injection? After your injection, you may experience side effects. These vary among individuals and are related to the specific vaccination. Most of the time, side effects are minor and go away quickly, but some may be severe. What severe side effects should I watch for? The most severe side effect associated with vaccination is developing a life-threatening allergic reaction known as anaphylaxis. You must seek immediate medical attention if any of the following symptoms occur: Trouble breathing ? Facial swelling Rapid drop in blood pressure (lightheaded, clammy) ? Throat swelling Dizziness/loss of consciousness ? Uncontrolled bleeding What are common minor side effects I might experience? One of the most common side effects is called an injection site reaction. It is not unusual to develop redness, pain, or swelling where the shot was given. The following is a list of other common side effects you might experience, depending on the vaccination you are receiving: Soreness, redness, or swelling, at site ? Bruising at the injection site Flu-like symptoms (body aches, fatigue) ? Headache Low-grade fever (up to 100.4o Fahrenheit) ? Itching Muscle pain What can I do to help relieve the common side effects? There are several self-care remedies you may try to help relieve the side effects. Remember most are temporary and go away quickly. Apply a cool, moist towel for 20 minutes over the spot where the shot was given and repeat every 2 to 4 hours as needed. This will help decrease swelling and pain at the injection site. Only with your provider’s okay, try acetaminophen (e.g. Tylenol) or ibuprofen (e.g. Motrin or Advil) as needed for pain or fever. Read package directions for proper dosing recommendations. Wear lightweight clothing. Avoid garments that constrict the injection site area. *NOTE: There is a possibility of other rare, but serious, side effects from the specific vaccination you are receiving. Please review the vaccine information sheet for further information. When should I seek medical care? You should contact your prescribing provider or primary care provider if you note the following: Pain or redness lasts more than 3 days ? Pus drains from the injection site High fever or chills ? Weakness or tingling in arms or legs. Redness or red streaks around the injection site grow bigger than 1 inch Vaccine Adverse Event Reporting System (VAERS): Contact the Vaccine Adverse Event Reporting System (VAERS) if adverse event occurs through the VAERS web site at www.vaers.hhs.gov or by calling . Metail[employer]eyeOS I [phone].SOREN ([phone]) [employer] & [id number] 13:57:08* Cruz Vidal NP - 11/14/2023 12:20 PM CDT Subjective: Patient ID: Víctor Landaverde is a 18 y.o. male here for a Vaccines visit. Reason for today's vaccine: routine vaccine;work requirement Are you sick today with a moderate to severe illness?: No Have you ever had a serious reaction to any vaccine in the past?: No Have you ever fainted, nearly fainted or been concerned about fainting after receiving an injection/vaccine?: No Do you have any concerns receiving a vaccine in either arm (history of shoulder injury, mastectomy or other surgery?): No Any patient-supplied information was reviewed and discussed with the patient. : Sven as reviewed. Has the VIS been reviewed?: Yes Lifestyle: Víctor reports that he has been smoking cigarettes. He has never used smokeless tobacco. Objective: Assessment/Plan: Vaccine administered in accordance with [facility] guidelines.Patient advised to contact [facility] if adverse event occurs. [facility] [id number] 13:57:08 [facility]
--- NOTE | 2025-03-23 15:25 | RAD REPORT ---
EXAM: Chest Single View HISTORY: 19 years Male CHEST PAIN COMPARISON: 12/01/2024 FINDINGS: LUNGS/PLEURA: The lungs are clear. No pleural effusions or pneumothorax. No pulmonary edema. CARDIAC/MEDIASTINUM: The cardiac silhouette is within normal limits. UPPER ABDOMEN: No significant abnormality. BONES: No acute abnormality. LINES/TUBES/OTHER: N/A IMPRESSION: No evidence of acute cardiopulmonary disease.
[2025-03-23 16:21] LABS: Absolute Lymphocytes (CBC) 1.4 K/uL (0.7-4.9); Hematocrit 43.7 % (39.6-49.0); Hemoglobin 15.0 g/dL (13.6-17.9); MCH 29.1 pg (27.0-35.0); MCHC 34.3 g/dL (32.0-36.0); MCV 84.9 fL (80-100); MPV 7.4 fL (7.6-11.3); Nucleated RBC Absolute Count 0.0 (0-0); Nucleated Red Blood Cells % 0.2 % (0-0); RBC Red Blood Cell Count 5.14 M/uL (4.33-5.43); White Blood Count 5.80 thou/uL (4.3-10.9)
[2025-03-23 16:48] LABS: Anion Gap 6.7 mEq/L (5.0-15.0); BUN Blood Urea Nitrogen 16 mg/dL (7-18); Glucose Level 106 mg/dL (74-106); Potassium 3.7 mEq/L (3.5-5.1)
[2025-03-23 16:49] LABS: Troponin High Sensitivity < 3.0 pg/mL (<58.9)
[2025-03-23] MEDS ORDERED: LORazepam 2 MG/ML VIAL ONE (16:53)
[2025-03-23] MEDS ORDERED: NA CHLORIDE 0.9% 1,000 ML ONE (16:54)
--- NOTE | 2025-03-23 17:20 | EDPHYS ---
Physician Documentation [facility] Name: Víctor Landaverde Age: 19 yrs Sex: Male : 2005 Arrival Date: 03/23/2025 Time: 14:48 Bed 8 Private MD: ED Physician Alexandru Valdovinos HPI: 03/23 15:11 This 19 yrs old Male presents to ER via Ambulatory with complaints of dr5 Palpitations. 15:11 Onset: The symptoms/episode began/occurred acutely. Patient is a 19-year-old male with dr5 history of anxiety coming in with 1 episode of anxiety and palpitations last night as well as 1 today. Patient reports that he was watching [employer] when episode started. Called 911 as patient's heart rate was in the 130s. Patient reports he has not taken his Lexapro yet today or his hydroxyzine. Patient denies any chest pain or symptoms upon ER initial evaluation.. Historical: - Allergies: 14:59 No Known Allergies; ll1 - PMHx: 14:59 None; ll1 - PSHx: 14:59 None; ll1 - Immunization history:: Adult Immunizations up to date. - Infectious Disease History:: Denies. - Social history:: Smoking status: Patient denies any tobacco usage or history of. ROS: 15:11 Constitutional: as per hpi dr5 Exam: 15:11 Constitutional: This is a well developed, well nourished patient who is awake, alert, dr5 and in no acute distress. Head/Face: Normocephalic, atraumatic. Eyes: Pupils equal round and reactive to light, extra-ocular motions intact. Lids and lashes normal. Conjunctiva and sclera are non-icteric and not injected. Cornea within normal limits. Periorbital areas with no swelling, redness, or edema. ENT: Nares patent. No nasal discharge, no septal abnormalities noted. Tympanic membranes are normal and external auditory canals are clear. Oropharynx with no redness, swelling, or masses, exudates, or evidence of obstruction, uvula midline. Mucous membranes moist. Neck: Trachea midline, no thyromegaly or masses palpated, and no cervical lymphadenopathy. Supple, full range of motion without nuchal rigidity, or vertebral point tenderness. No Meningismus. Chest/axilla: Normal chest wall appearance and motion. Nontender with no deformity. No lesions are appreciated. Cardiovascular: Regular rate and rhythm with a normal S1 and S2. Normal PMI, no JVD. No pulse deficits. Respiratory: Lungs have equal breath sounds bilaterally, clear to auscultation. No rales, rhonchi or wheezes noted. No increased work of breathing, no retractions or nasal flaring. Back: No spinal tenderness. No costovertebral tenderness. Full range of motion. Skin: Warm, dry with normal turgor. Normal color with no rashes, no lesions, and no evidence of cellulitis. MS/ Extremity: Pulses equal, no cyanosis. Neurovascular intact. Full, normal range of motion. Neuro: Awake and alert, GCS 15, oriented to person, place, time, and situation. Cranial nerves II-XII grossly intact. Motor strength 5/5 in all extremities. Sensory grossly intact. Cerebellar exam normal. Normal gait. 16:40 An electrocardiogram was deferred on this patient dr5 Vital Signs: 14:59 BP 137 / 71; Pulse 77; Resp 16; Temp 98.2; Pulse Ox 98% ; Weight 59.87 kg; Height 5 ft. ll1 7 in. ; Pain 0/10; 16:58 BP 123 / 75; Pulse 68; Resp 18; Pulse Ox 100% ; ap3 14:59 Body Mass Index 20.67 (59.87 kg, 170.18 cm) ll1 14:59 Pain Scale: Adult ll1 MDM: 14:49 Medical Screening Exam initiated dr5 17:49 Differential Diagnosis altered mental status, Panic attack, anemia, electrolyte dr5 abnormality, elevated troponin. Data reviewed: vital signs, nurses notes, lab test result(s), cardiac enzymes, troponin i, CBC, white blood cell count, hemoglobin, hematocrit, platelets, electrolytes, sodium, potassium, chloride, serum bicarbonate, BUN, creatinine, serum glucose, EKG, radiologic studies, plain films. Consideration of Admission/Observation Escalation of care including admission/observation considered. Escalation considered patient found to have elevated troponin. I considered the following discharge prescriptions or medication management in the emergency department I discussed and recommended Over The Counter medications, Medications were administered in the Emergency Department. See MAR. Care significantly affected by the following chronic conditions: Anxiety. Care significantly affected by the following Social Determinants of Health: Poor access to healthcare and/or lack of insurance, Poor access to transportation, Problems related to employment. Counseling: I had a detailed discussion with the patient and/or guardian regarding the historical points, exam findings, and any diagnostic results supporting the discharge/admit diagnosis, the presence of at least one elevated blood pressure reading (>120/80) during this emergency department visit, lab results, radiology results, the need for outpatient follow up, for definitive care, a family practitioner, to return to the emergency department if symptoms worsen or persist or if there are any questions or concerns that arise at home. Medication response: Ativan, normal saline. Response to treatment: the patient's symptoms have resolved after treatment, the patient's condition has returned to base line, the patient is now symptom free. Special discussion: Based on the patient's history, exam, and Dx evaluation, there is no indication for emergent intervention or inpatient Tx. It is understood by the patient/guardian that if the Sx's persist or worsen they need to return immediately for re-evaluation. I discussed with the patient/guardian in detail that at this point there is no indication for admission to the hospital. It is understood, however, that if the symptoms persist or worsen the patient needs to return immediately for re-evaluation. Based on the history and exam findings, there is no indication for further emergent testing or inpatient evaluation. I discussed with the patient/guardian the need to see the primary care provider for further evaluation of the symptoms. ED course: Patient denies any anxiety or tachycardia during ER stay. Patient reports he is feeling better. Patient is not having symptoms at all. Will refill patient's hydroxyzine. All questions. Strict ER precautions given. Recommend patient follow-up primary care doctor. Labs and chest x-ray printed and given to patient take with primary care doctor. 03/23 14:49 Order name: Basic Metabolic Panel; Complete Time: 16:50 [facility] 03/23 14:49 Order name: CBC with Diff; Complete Time: 16:33 [facility] 03/23 14:49 Order name: Troponin HS; Complete Time: 16:50 [facility] 03/23 14:49 Order name: XRAY Chest (1 view); Complete Time: 15:26 [facility] 03/23 14:49 Order name: EKG; Complete Time: 14:50 [facility] 03/23 14:49 Order name: Cardiac monitoring; Complete Time: 16:48 03/23 14:49 Order name: EKG - Nurse/Tech; Complete Time: 16:23 dr5 03/23 14:49 Order name: IV Saline Lock; Complete Time: 16:17 dr5 03/23 14:49 Order name: Labs collected and sent; Complete Time: 16: dr5 03/23 14:49 Order name: O2 Per Protocol; Complete Time: 16:48 dr5 03/23 14:49 Order name: O2 Sat Monitoring; Complete Time: 16:48 dr5 EC:21 Rate is 66 beats/min. Rhythm is regular. QRS [place] is Normal. [place] interval is normal at dr5 152 msec. QRS interval is normal at 86 msec. QT interval is normal at 364 msec. Clinical impression: Normal ECG and No evidence of ischemia. Administered Medications: 16:58 Drug: Ativan IVP 0.5 mg IVP once Route: IVP; Site: right antecubital; ap3 17:28 Follow up: Response: No adverse reaction ap3 16:58 Drug: NS 0.9% IV 1000 ml IV at 1000 ml once; to be given as a bolus over 60 minutes ap3 Route: IV; Rate: 1000 ml; Site: right antecubital; 17:28 Follow up: IV Status: Completed infusion; IV Intake: 1000ml ap3 Disposition Summary: 03/23/25 17:20 Discharge Ordered Notes: Location: Home dr5 Condition: Stable dr5 Diagnosis - Generalized anxiety disorder dr5 Followup: dr5 - With: Emergency Department - When: As needed - Reason: Worsening of condition Followup: dr5 - With: Private Physician - When: 1 - 2 days - Reason: Recheck today's complaints, Continuance of care, Re-evaluation by your physician Discharge Instructions: - Discharge Summary Sheet dr5 - Panic Attack dr5 Forms: - Medication Reconciliation Form dr5 - Patient Portal Instructions dr5 - Leadership Thank You Letter dr5 Prescriptions: - Hydroxyzine HCl 25 mg Oral Tablet - take 1 tablet ORAL route every 6 hours As needed; 30 tablet; Refills: 0, dr5 Product Selection Permitted Signatures: Dispatcher [employer] Jada Lenz RN RN ap3 Audi Dominguez RN RN ll1 Addy Calixto, JENNY-C NATIONAL EXPANSION RECRUITER-Cdr5
--- NOTE | 2025-03-23 17:20 | ER ---
Nurse's Notes [facility] Name: Víctor Landaverde Age: 19 yrs Sex: Male : 2005 Arrival Date: 03/23/2025 Time: 14:48 Bed 8 Private MD: Diagnosis: Generalized anxiety disorder Presentation: 03/23 14:59 Coronavirus screen: Client denies travel out of the [place] in the last 14 days. At this ll1 time, the client does not indicate any symptoms associated with coronavirus-19. Ebola Screen: Patient denies travel to an Ebola-affected area in the 21 days before illness onset. Initial Sepsis Screen: Does the patient meet any 2 criteria? No. Patient's initial sepsis screen is negative. Does the patient have a suspected source of infection? No. Patient's initial sepsis screen is negative. Risk Assessment: Do you want to hurt yourself or someone else? Patient reports no desire to harm self or others. 14:59 Method Of Arrival: Ambulatory ll1 15:00 Chief complaint: Patient states: Watch alerted him his HR was 145 today while watching ll1 YouTube. Then he started to have palpitations. One episode last night also. Onset of symptoms was March 23, 2025. 15:00 Acuity: COURTNEY 3 ll1 Triage Assessment: 14:59 General: Appears uncomfortable, Behavior is calm, cooperative, appropriate for age. ll1 Pain: Complains of pain in chest Quality of pain is described as pressure. Cardiovascular: Reports chest pain, palpitations. Historical: - Allergies: 14:59 No Known Allergies; ll1 - PMHx: 14:59 None; ll1 - PSHx: 14:59 None; ll1 - Immunization history:: Adult Immunizations up to date. - Infectious Disease History:: Denies. - Social history:: Smoking status: Patient denies any tobacco usage or history of. Screenin:49 [facility] ED Fall Risk Assessment (Adult) History of falling in the last 3 months, ap3 including since admission No falls in past 3 months (0 pts) Confusion or Disorientation No (0 pts) Intoxicated or Sedated No (0 pts) Impaired Gait No (0 pts) Mobility Assist Device Used No (0 pt) Altered Elimination No (0 pt) Score/Fall Risk Level 0 - 2 = Low Risk Oriented to surroundings, Maintained a safe environment, Educated pt \T\ family on fall prevention, incl call for assistance when getting out of bed, Assessed \T\ reinforced patient's understanding of fall precautions, Hourly rounding (assess needs \T\ fall precautionary measures) done, Used ambulatory aids as needed (educated on \T\ assisted with). Abuse screen: Denies threats or abuse. Nutritional screening: No deficits noted. Tuberculosis screening: No symptoms or risk factors identified. Assessment: 16:49 General: Appears in no apparent distress. Behavior is calm, cooperative, appropriate ap3 for age. Pain: Denies pain. Neuro: Level of Consciousness is awake, alert, obeys commands, Oriented to person, place, time, situation. Cardiovascular: Patient's skin is warm and dry. Respiratory: Airway is patent Respiratory effort is even, unlabored, Respiratory pattern is regular, symmetrical. Vital Signs: 14:59 BP 137 / 71; Pulse 77; Resp 16; Temp 98.2; Pulse Ox 98% ; Weight 59.87 kg; Height 5 ft. ll1 7 in. ; Pain 0/10; 16:58 BP 123 / 75; Pulse 68; Resp 18; Pulse Ox 100% ; ap3 14:59 Body Mass Index 20.67 (59.87 kg, 170.18 cm) ll1 14:59 Pain Scale: Adult ll1 ED Course: 14:49 Patient arrived in ED. dr5 14:49 Addy Calixto FNP-C [facility]. dr5 14:49 Alexandru Valdovinos MD is Attending Physician. dr5 14:58 Arm band placed on. ll1 14:59 XRAY Chest (1 view) In Process Unspecified. EDMS 15:02 Triage completed. ll1 16:17 Inserted saline lock: 20 gauge in right antecubital area, using aseptic technique. ts3 Blood collected. Flushed with 10 mL NS. 16:17 Initial lab(s) drawn, by laborer stores, sent to lab. ts3 16:23 EKG done, by information technology intern. reviewed by Addy LIND. ts3 16:43 Jada Alva, RN is Primary Nurse. ap3 16:50 Client placed on continuous cardiac and pulse oximetry monitoring. NIBP monitoring ap3 applied. media monitor on. Pulse ox on. NIBP on. 17:26 No provider procedures requiring assistance completed. IV discontinued, intact, ap3 bleeding controlled, No redness/swelling at site. Pressure dressing applied. 17:27 Patient has correct armband on for positive identification. Provided Education on: ap3 medications prior to administration . Administered Medications: 16:58 Drug: Ativan IVP 0.5 mg IVP once Route: IVP; Site: right antecubital; ap3 17:28 Follow up: Response: No adverse reaction ap3 16:58 Drug: NS 0.9% IV 1000 ml IV at 1000 ml once; to be given as a bolus over 60 minutes ap3 Route: IV; Rate: 1000 ml; Site: right antecubital; 17:28 Follow up: IV Status: Completed infusion; IV Intake: 1000ml ap3 Medication: 17:27 VIS not applicable for this client. ap3 Intake: 17:28 IV: 1000ml; Total: 1000ml. ap3 Outcome: 17:20 Discharge ordered by MD. dr5 17:26 Discharged to home ambulatory, ap3 17:26 Condition: good 17:26 Discharge instructions given to patient, Instructed on discharge instructions, follow up and referral plans. medication usage, Demonstrated understanding of instructions, follow-up care, medications, Prescriptions given X 1, 17:28 Patient left the ED. ap3 Signatures: Dispatcher [employer] EDMS Jada Alva RN RN ap3 Audi Dominguez RN RN ll1 Addy Calixto, MANAGER EQUIPMENT-C MANAGER EQUIPMENT-Cdr5 Luana Wick ts3 Corrections: (The following items were deleted from the chart) 15:03 14:59 59.87 kg; Height 5 ft. 7 in.; BMI: 20.6; Pain 0/10, Adult; ll1 ll1 16:23 16:23 EKG done, by information technology intern. ts3 ts3
[2025-03-23 18:03] VITALS: TEMP 98.2
[2025-03-23 18:52] VITALS: BP 123/75; O2SAT 100
== END 2025-03-23 17:28 | disposition home or self-care (01) ==
LOC: ER 14:48
DX: F41.1 Generalized anxiety disorder (principal)
CPT/HCPCS: 36415; 71045; 80048; 84484; 85025; 93005; 96374; 99285; J7030